=== PATIENT | female | born 1965 | race Caucasian/White ===

== ENCOUNTER 2016-03-24 07:19 | Day surgery (SDC) | payer OTHER ==
[~2016-03-24 07:19] MED LIST: ceFAZolin 2 GM in D5W 100 ML IV ONE
[2016-03-24] MEDS ORDERED: BUPIVACAINE 0.5% 30 ML SDV ONE (07:37)
[2016-03-24] MEDS ORDERED: SCOPOLAMINE HYDROBROMIDE 1.5 MG PATCH TD ONE ×2 (08:00→08:06)
[2016-03-24] MEDS ORDERED: CEFAZOLIN 2 GM/DEXTROSE/100 ML BAG IV ONE (08:06)
[2016-03-24] MEDS ORDERED: LIDOCAINE 1% 5 ML SDV ONE (08:06)
[2016-03-24] MEDS ORDERED: LR 1,000 ML IV ONE (08:08)
[2016-03-24] MEDS ORDERED: LIDOCAINE 1% 5 ML SDV ID PRN (08:08)
[2016-03-24] MEDS ORDERED: fentaNYL 100 MCG/2 ML INJ ONE ×2 (10:34→11:00)
[2016-03-24] MEDS ORDERED: MIDAZOLAM 2 MG/2 ML VIAL ONE (10:34)
[2016-03-24] MEDS ORDERED: PROPOFOL/EMULSION 500 MG/50 ML BOTTLE IV ONE ×2 (10:35→11:02)
[2016-03-24] MEDS ORDERED: DEXAMETHASONE 4 MG/ML VIAL ONE (11:21)
[2016-03-24] MEDS ORDERED: ONDANSETRON 4 MG/2 ML VIAL ONE (11:21)
--- NOTE | 2016-03-24 12:40 | GOP ---
[f rep st] OPERATIVE REPORT DATE OF OPERATION: 03/24/2016 SURGEON: Antonella Yusuf MD PRESS BREAKER: Jennifer Natarajan PA-C ANESTHESIA: General. ANESTHESIOLOGIST: Regina Christianson MD PREOPERATIVE DIAGNOSIS: Malignant melanoma right neck. POSTOPERATIVE DIAGNOSIS: Malignant melanoma right neck. PROCEDURE PERFORMED: 1. Wide local excision right neck. 2. Excision of deep left supraclavicular lymph node. 3. Excision right axillary sentinel lymph node. FINDINGS: 1. Left supraclavicular lymph node measured 2000. The background was quiet. 2. Right axillary node measured 600. The background was 50. SPECIMENS: 1. Wide local excision left supraclavicular lymph node. 2. Right axillary lymph node. ESTIMATED BLOOD LOSS: 10 cc. INDICATIONS: The patient is a 50-year-old woman who had a malignant melanoma removed on her right ne ck. On re-excision, the margins were less than 1 cm. Due to the depth, sentinel lymph node was chris cated and wide local excision. DESCRIPTION OF PROCEDURE: The patient was brought into the operating room, placed supine on the tabl e, and general anesthesia was administered. Her bilateral neck, chest, and axilla were prepped and d raped in the usual sterile fashion. I infiltrated all areas with 0.5% Marcaine prior to making incis ions. I measured 1 cm margins around her previous incision on her neck. I dissected down to the lev el of the muscle. I excised the tissue. I marked this short posterior, long lateral. Hemostasis wa s achieved. The wound was closed with 0 Vicryl followed by 4-0 Monocryl. Mastisol, Steri-Strips, an d a sterile dressing were applied. Next, I used the probe and I identified an area that was hot abov e the supraclavicular region on her left side. Externally there is no activity along the internal ma mmary or above the right supraclavicular area. I made a small incision along the natural skin crease . I dissected down through the subcutaneous tissues. I divided the platysma. I then the strap muscles. The node was extremely deep. I continued my dissection until I encountered a very ho t and very small node. It measured 2000 ex vivo. Hemostasis was achieved. The strap muscles were r eapproximated. The platysma was reapproximated with 3-0 Vicryl. The wound was closed with 0 Vicryl followed by 4-0 Monocryl. Mastisol, Steri-Strips, and a sterile dressing were applied. Finally, I m kal an incision beneath the hair-bearing portion in her right axilla. I dissected down through the s ubcutaneous tissue and I broke into the axillary space. I used the gamma probe to help identify the sentinel lymph node. This was also deep. I continued my dissection until I isolated the sentinel ly mph node. It measured 600. The background was less than 50. Hemostasis was achieved. The wound wa s closed with 3-0 Vicryl followed by 4 Monocryl. Mastisol, Steri-Strips, and a sterile dressing were applied. She was awakened in the operating room, extubated, transferred to PACU in stable condition . /[id number]/MODL
--- NOTE | 2016-03-24 12:59 | NM ---
Nuclear Medicine Lymphoscintigraphy ,10:31 a.m. Indication: Melanoma right neck. Upton node mapping. Technique: Informed consent was given. The right supraclavicular region was sterilely prepped and d raped. Three intradermal injections were placed along the margin of the incision. A total dose of 575 uCi of technetium 99m Lymphoseek were uneventfully administered. The patient was imaged serially. Findings: Radiotracer accumulates in the right axilla and right supraclavicular/internal mammary dist ribution. The radiotracer does not course posteriorly or superiorly into the neck. Impression: Radiotracer accumulates in right axillary nodes and right suprasternal/internal mammary n odal chains. Comment: Dr. Yusuf reviewed the imaging with Dr. Olson.
== END 2016-03-24 13:25 | disposition home or self-care (01) ==
LOC: FSGY 07:19
PROVIDERS: ATTEND Surgery
PROC: 0JB40ZZ Excision of Right Neck Subcutaneous Tissue and Fascia, Open Approach (ICD-10-PCS; principal; 2016-03-24 10:00)
PROC: 07B50ZZ Excision of Right Axillary Lymphatic, Open Approach (ICD-10-PCS; principal; 2016-03-24 10:00)
PROC: 07B Lymphatic and Hemic Systems, Excision (ICD-10-PCS; principal; 2016-03-24 10:00)
DX: C43.4 Malignant melanoma of scalp and neck (principal)
CPT/HCPCS: 11042; 38500; 38525; 78195; A9520; J0690; J1100; J2250; J2405; J2704; J3010

== ENCOUNTER → 2016-05-12 | Outpatient (CLI) | payer OTHER | LOC: FIMAGING 09:48 | DX: Z12.31 Encounter for screening mammogram for malignant neoplasm of breast (principal) | CPT/HCPCS: G0202 ==

== ENCOUNTER → 2017-05-24 | Outpatient (CLI) | payer OTHER | LOC: FIMAGING 11:18 | PROVIDERS: ATTEND Family Medicine | DX: Z12.31 Encounter for screening mammogram for malignant neoplasm of breast (principal) ==

== ENCOUNTER → 2017-06-12 | Outpatient (CLI) | payer OTHER | LOC: FIMAGING 13:30 | PROVIDERS: ATTEND Family Medicine | DX: N60.11 Diffuse cystic mastopathy of right breast (principal); N60.12 Diffuse cystic mastopathy of left breast ==

== ENCOUNTER → 2018-02-20 | Outpatient (CLI) | payer OTHER | LOC: FIMAGING 09:28 | PROVIDERS: ATTEND Family Medicine | DX: N60.01 Solitary cyst of right breast (principal) ==